=== PATIENT | male | born 1950 | race Caucasian/White ===

== ENCOUNTER → 2016-08-09 | Outpatient (CLI) | payer OTHER ==
--- NOTE | 2016-08-09 08:27 | DX ---
Cervical Spine, Three Views History: Follow fusion surgery Comparison: preoperative MRI March 31, 2016 Findings: Alignment is straight and anatomic. There is an anterior compression plate with transverteb ral body screws and interbody bone plugs present between C5 and C7. The hardware is intact. Bone plug s are in good position. There is little prevertebral soft tissue swelling. Impression: Excellent postoperative alignment.
== END ==
LOC: BMCIMAGING 08:03
PROVIDERS: ATTEND Neurological Surgery
DX: Z09 Encounter for follow-up examination after completed treatment for conditions other than malignant neoplasm (principal); Z98.1 Arthrodesis status

== ENCOUNTER → 2016-11-03 | Outpatient (CLI) | payer OTHER | LOC: BRMIMAGING 16:38 | PROVIDERS: ATTEND Neurological Surgery | DX: Z09 Encounter for follow-up examination after completed treatment for conditions other than malignant neoplasm (principal); Z98.1 Arthrodesis status; M46.92 Unspecified inflammatory spondylopathy, cervical region | CPT/HCPCS: 72040-PO ==

== ENCOUNTER → 2017-02-04 | Outpatient (CLI) | payer OTHER | LOC: BMCIMAGING 16:14 | PROVIDERS: ATTEND Physician Assistant Surgical | DX: Z09 Encounter for follow-up examination after completed treatment for conditions other than malignant neoplasm (principal); Z98.1 Arthrodesis status ==

== ENCOUNTER → 2017-04-29 | Outpatient (CLI) | payer OTHER | LOC: BMCIMAGING 16:05 | PROVIDERS: ATTEND Physician Assistant Surgical | DX: Z09 Encounter for follow-up examination after completed treatment for conditions other than malignant neoplasm (principal); Z98.1 Arthrodesis status ==

== ENCOUNTER → 2017-06-28 | Outpatient (CLI) | payer OTHER | LOC: FIMAGING 06:45 | PROVIDERS: ATTEND Physician Assistant Surgical | DX: M51.36 Other intervertebral disc degeneration, lumbar region (principal) ==

== ENCOUNTER → 2017-07-04 | Outpatient (CLI) | payer OTHER | LOC: CIMAGING 16:42 | PROVIDERS: ATTEND Internal Medicine | DX: N28.1 Cyst of kidney, acquired (principal); R33.9 Retention of urine, unspecified | CPT/HCPCS: 76770-PO ==

== ENCOUNTER → 2017-08-01 | Outpatient (CLI) | payer OTHER | LOC: BRMIMAGING 15:56 | PROVIDERS: ATTEND Physician Assistant Surgical | DX: M43.22 Fusion of spine, cervical region (principal); M43.12 Spondylolisthesis, cervical region; M46.92 Unspecified inflammatory spondylopathy, cervical region | CPT/HCPCS: 72050-PO ==

== ENCOUNTER → 2018-02-01 | Outpatient (CLI) | payer OTHER | LOC: BMCIMAGING 16:03 | PROVIDERS: ATTEND Physician Assistant Surgical | DX: Z09 Encounter for follow-up examination after completed treatment for conditions other than malignant neoplasm (principal); Z98.1 Arthrodesis status ==